=== PATIENT | female | born 1980 | race Two or more races ===

== ENCOUNTER 2016-11-21 12:44 | Inpatient (IN) | payer MEDICAID ==
[~2016-11-21] VITALS: Ht 177.8 cm; Wt 117.9 kg
[~2016-11-21 12:44] MED LIST: CLIN1CAP4 PO; DOXY-216 PO; HYDR-2457; LOPRESSOR PO; LORA-655 PO; NORVASC PO; POTA-167 PO; TRIA50TA2 PO
[2016-11-21] MEDS ORDERED: SODIUM CHLORIDE 0.9% 1,000 ML IV ONE ×2 (22:23)
[2016-11-21] MEDS ORDERED: KETOROLAC TROMETH 30 MG/ML 1ML VIAL IV ONE (22:30)
[2016-11-21 22:48] LABS: Basophils # (auto) 0.2 uL; Basophils % (auto) 1.6 % (0.0-2.0); CONDITION Y; Eosinophils # (auto) 0.1 uL; Eosinophils % (auto) 0.7 % (0.0-7.0); Hematocrit 41.6 % (36.0-46.0); Hemoglobin 14.1 g/dL (12.2-16.2); Lymphocytes # (auto) 2.8 uL; Lymphocytes % (auto) 20.6 % (10.0-50.0); Mean Corpuscular Hemoglobin 33.5 pg (28.0-32.0); Mean Corpuscular Volume 98.5 fL (80.0-100.0); Mean Platelet Volume 9.1 fL (7.4-10.4); Monocytes # (auto) 0.8 uL; Monocytes % (auto) 5.8 % (0.0-12.0); Neutrophils # (auto) 9.6 uL; Neutrophils % (auto) 71.3 % (37.0-80.0); Platelet Count (auto) 300 10^3/uL (140-450); White Blood Cell 13.5 10^3/uL (4.4-10.8)
[2016-11-21 23:11] LABS: Albumin 3.3 g/dL (3.4-5.0); BUN/Creatinine Ratio 9.6; Bilirubin, Total 0.6 mg/dL (0.2-1.0); Calcium 8.4 mg/dL (8.5-10.1); Total Protein 7.4 g/dL (6.4-8.2)
[2016-11-21 23:16] LABS: Potassium 1.8 mmol/L (3.5-5.1)
[2016-11-22] VITALS (7 sets, daily range): BP systolic 122–142; BP diastolic 65–80
[2016-11-22] MEDS ORDERED: POTASSIUM CHL 20 Meq TABLET PO ONE ×5 (00:15→17:30)
[2016-11-22] MEDS ORDERED: MORPHINE SULF INJ 2 MG/ML SYRINGE 1ML IV PRN (00:15)
[2016-11-22] MEDS ORDERED: SOD CHL 0.9%/ KCL 20MEQ 1,000 ML IV ONE (00:15)
[2016-11-22] MEDS ORDERED: NITROGLYCERIN 0.4 MG SL TAB SL PRN (00:15)
[2016-11-22 00:27] LABS: Urine RBC None Seen /hpf (0 - 4)
[2016-11-22] MEDS ORDERED: ACETAMINOPHEN 500 MG TAB PO PRN (00:30)
[2016-11-22] MEDS ORDERED: ONDANSETRON HCL 4 MG/2 ML VIAL IV PRN (00:30)
[2016-11-22] MEDS ORDERED: TEMAZEPAM 15 MG CAP PO PRN (00:30)
[2016-11-22 00:52] LABS: Urine Bilirubin Negative (Negative); Urine Blood Negative /uL (Negative); Urine Color Yellow (Yellow); Urine Glucose Normal (Normal); Urine Ketone Negative (Negative); Urine Squamous Epithelial Cell FEW /hpf (<5); Urine Urobilinogen Normal (Negative); Urine pH 7.5 (5.0-8.0)
[2016-11-22 00:53] LABS: Urine Nitrite POSITIVE (Negative)
[2016-11-22] MEDS ORDERED: NITROFURANTOIN (MONO) 100 mg CAP PO ONE (02:00)
[2016-11-22] MEDS ORDERED: SODIUM CHLORIDE 0.9% 1,000 ML IV SCH (02:00)
[2016-11-22 02:44] LABS: B-Type Natriuretic Peptide 20.18 pg/mL (0-100)
[2016-11-22] MEDS: POTASSIUM CHL 20MEQ/100ML 100 ML IV SCH ×3 (02:45→07:04)
[2016-11-22 02:57] LABS: Temperature: 22.3 C (20.0-25.0)
[2016-11-22] MEDS: HYDROcodone-ACET 5/325MG TAB PO PRN ×3 (05:18→20:24)
[2016-11-22] MEDS: MORPHINE SULF INJ 2 MG/ML SYRINGE 1ML IV PRN ×3 (07:04→16:50)
[2016-11-22 07:48] LABS: Basophils # (auto) 0.1 uL; Basophils % (auto) 0.5 % (0.0-2.0); CONDITION Y; Eosinophils # (auto) 0.1 uL; Eosinophils % (auto) 0.8 % (0.0-7.0); Hematocrit 41.9 % (36.0-46.0); Hemoglobin 14.6 g/dL (12.2-16.2); Lymphocytes # (auto) 2.3 uL; Lymphocytes % (auto) 19.2 % (10.0-50.0); Mean Corpuscular Hemoglobin 34.1 pg (28.0-32.0); Mean Corpuscular Hgb Conc. 34.8 g/dL (32.0-36.0); Mean Corpuscular Volume 97.9 fL (80.0-100.0); Mean Platelet Volume 9.5 fL (7.4-10.4); Monocytes # (auto) 0.7 uL; Neutrophils # (auto) 8.7 uL; Neutrophils % (auto) 73.5 % (37.0-80.0); Platelet Count (auto) 303 10^3/uL (140-450); Red Cell Distribution Width 14.2 % (11.6-16.0); White Blood Cell 11.8 10^3/uL (4.4-10.8)
[2016-11-22 08:18] LABS: BUN/Creatinine Ratio 8.3; Calcium 8.5 mg/dL (8.5-10.1)
[2016-11-22 08:35] LABS: Potassium 1.9 mmol/L (3.5-5.1)
[2016-11-22] MEDS ORDERED: NITROFURANTOIN (MONO) 100 mg CAP PO SCH (10:00)
[2016-11-22] MEDS: cefTRIAXone 1GM/50ML D5W 50 ML IV SCH (10:08)
[2016-11-22] MEDS: METOPROLOL TARTRATE 25 MG TAB PO SCH ×2 (10:09→22:09)
[2016-11-22] MEDS: amLODIPine BESYLATE 5 MG TAB PO SCH (10:09)
[2016-11-22] MEDS ORDERED: POTASSIUM CHLORIDE 40 MEQ, LIDOCAINE 1% (LOCAL ANESTH.) 4 ML in SODIUM CHL 0.9% 250 ML IV ONE ×2 (10:30→12:30)
[2016-11-22] MEDS: MAGNESIUM SULFATE 1GM/100ML 100 ML IV SCH ×3 (11:03→13:00)
[2016-11-22] MEDS: methylPREDNISolone SOD SUCC 40 MG/ML VL IV SCH ×2 (14:08→22:01)
[2016-11-22] MEDS ORDERED: FAM20T PO (14:16)
[2016-11-22] MEDS ORDERED: CEL100T PO (14:16)
[2016-11-22] MEDS ORDERED: IBUP800T24 PO (14:16)
[2016-11-22 17:10] LABS: Potassium 2.7 mmol/L (3.5-5.1)
[2016-11-22] MEDS: CELECOXIB 100 MG CAP PO SCH (22:01)
[2016-11-22] MEDS: LORazepam 0.5 MG TAB PO PRN (22:01)
[2016-11-22] MEDS: POTASSIUM CHL 20 Meq TABLET PO SCH (22:05)
[2016-11-23] MEDS: MORPHINE SULF INJ 2 MG/ML SYRINGE 1ML IV PRN ×2 (02:33→06:41)
[2016-11-23] MEDS: LORazepam 0.5 MG TAB PO PRN ×2 (04:31→11:17)
[2016-11-23 05:44] LABS: Basophils # (auto) 0 uL; CONDITION Y; Eosinophils # (auto) 0 uL; Hematocrit 41.6 % (36.0-46.0); Hemoglobin 14.4 g/dL (12.2-16.2); Lymphocytes # (auto) 1.3 uL; Lymphocytes % (auto) 8.2 % (10.0-50.0); Mean Corpuscular Hemoglobin 34.3 pg (28.0-32.0); Mean Corpuscular Hgb Conc. 34.6 g/dL (32.0-36.0); Mean Platelet Volume 9.4 fL (7.4-10.4); Monocytes # (auto) 0.3 uL; Monocytes % (auto) 1.8 % (0.0-12.0); Platelet Count (auto) 313 10^3/uL (140-450); Red Cell Distribution Width 14.8 % (11.6-16.0); White Blood Cell 15.5 10^3/uL (4.4-10.8)
[2016-11-23 05:57] LABS: Potassium 3.4 mmol/L (3.5-5.1)
[2016-11-23 06:03] VITALS: BP 146/87
[2016-11-23] MEDS: methylPREDNISolone SOD SUCC 40 MG/ML VL IV SCH (06:41)
[2016-11-23 09:13] VITALS: BP 118/75
[2016-11-23] MEDS: CELECOXIB 100 MG CAP PO SCH (09:46)
[2016-11-23] MEDS: cefTRIAXone 1GM/50ML D5W 50 ML IV SCH (09:46)
[2016-11-23] MEDS: POTASSIUM CHL 20 Meq TABLET PO SCH (09:47)
[2016-11-23] MEDS: METOPROLOL TARTRATE 25 MG TAB PO SCH (09:47)
[2016-11-23] MEDS: amLODIPine BESYLATE 5 MG TAB PO SCH (09:48)
[2016-11-23] MEDS ORDERED: LIDOCAINE 5% TOPICAL PATCH TOP SCH (10:00)
[2016-11-23] MEDS ORDERED: AMLO10TA2 PO (10:00)
[2016-11-23 10:40] VITALS: BP 118/75
[2016-11-23 10:53] VITALS: BP 118/75
[2016-11-23 11:03] VITALS: BP 118/75
[2016-11-23] MEDS: HYDROcodone-ACET 5/325MG TAB PO PRN (11:17)
== END 2016-11-23 11:50 | disposition home or self-care (01) | DRG 425 ==
LOC: EDBD 12:44 → ER 12:50 → TELE 12:51 → TELE-CENTR 11-22 02:16
PROVIDERS: ADMIT Nurse Practitioner Family; ATTEND Hospitalist
DX: E87.6 Hypokalemia (principal); E66.01 Morbid (severe) obesity due to excess calories; I11.9 Hypertensive heart disease without heart failure; K76.0 Fatty (change of) liver, not elsewhere classified; N39.0 Urinary tract infection, site not specified; G89.29 Other chronic pain; J98.11 Atelectasis; F41.9 Anxiety disorder, unspecified; M47.816 Spondylosis without myelopathy or radiculopathy, lumbar region; M48.06 Spinal stenosis, lumbar region; F17.210 Nicotine dependence, cigarettes, uncomplicated; T50.2X5A Adverse effect of carbonic-anhydrase inhibitors, benzothiadiazides and other diuretics, initial encounter; Z68.37 Body mass index [BMI] 37.0-37.9, adult; Z88.5 Allergy status to narcotic agent; Z88.0 Allergy status to penicillin; Z87.828 Personal history of other (healed) physical injury and trauma; Z82.3 Family history of stroke; Z82.49 Family history of ischemic heart disease and other diseases of the circulatory system
CPT/HCPCS: 36415; 71010; 72128; 72131; 80048; 80053; 81001; 83735; 83880; 84132; 84443; 84484; 84702; 85025; 87086; 87088; 87186; 93005; 96361; 96374; 97163; J0696; J1885; J2001; J3480

== ENCOUNTER 2017-12-23 21:44 | Emergency (ER) | payer MEDICAID ==
[~2017-12-23] VITALS: Ht 180.3 cm; Wt 117.9 kg
[~2017-12-23 21:44] MED LIST changes: +AMLO10TA12 PO; +CEL100T PO; -CLIN1CAP4 PO; -DOXY-216 PO; +FAM20T PO; +IBUP800T24 PO; -NORVASC PO; -POTA-167 PO; -TRIA50TA2 PO
[2017-12-23 22:55] LABS: Basophils # (auto) 0.1 uL; Eosinophils # (auto) 0.3 uL; Eosinophils % (auto) 2.7 % (0.0-7.0); Hematocrit 44.1 % (36.0-46.0); Hemoglobin 14.8 g/dL (12.2-16.2); Lymphocytes # (auto) 2.8 uL; Lymphocytes % (auto) 26.8 % (10.0-50.0); Mean Corpuscular Hemoglobin 33.6 pg (28.0-32.0); Mean Corpuscular Hgb Conc. 33.4 g/dL (32.0-36.0); Mean Corpuscular Volume 100.6 fL (80.0-100.0); Monocytes # (auto) 0.7 uL; Monocytes % (auto) 6.4 % (0.0-12.0); Neutrophils # (auto) 6.6 uL; Neutrophils % (auto) 63.1 % (37.0-80.0); Nucleated Red Blood Cells % 0.1 %; Platelet Count (auto) 302 10^3/uL (140-450); Red Blood Cells 4.39 10^6/uL (4.0-5.20); White Blood Cell 10.5 10^3/uL (4.4-10.8)
[2017-12-23 23:09] LABS: INR 0.91 (0.9-1.15); Partial Thromboplastin Time 27.4 sec (23.78-33.04); Prothrombin Time 9.8 sec (9.27-12.13)
[2017-12-23 23:12] LABS: Albumin 3.5 g/dL (3.4-5.0); Anion Gap 9 (5-15); Aspartate Aminotransferase 40 U/L (15-37); Blood Alcohol < 3.0 mg/dL (0-5); Blood Urea Nitrogen 6 mg/dL (7-18); Calcium 8.3 mg/dL (8.5-10.1); Carbon Dioxide 19 mmol/L (21-32); Chloride 108 mmol/L (98-107); GFR African American 95 mL/min; GFR Non-African American 79 mL/min; Glucose 180 mg/dL (74-106); Magnesium 2.1 mg/dL (1.6-2.6); Potassium 4.5 mmol/L (3.5-5.1); Salicylate 3.1 mg/dL (2.8-20.0); Sodium 136 mmol/L (136-145)
[2017-12-23 23:12] LABS: Urine Bacteria FEW /hpf (None Seen); Urine Blood Negative /uL (Negative); Urine Specific Gravity 1.009 (1.001-1.035); Urine WBC 8 /hpf (0 - 5)
[2017-12-23 23:14] LABS: Acetaminophen < 2.0 ug/mL (10-30)
[2017-12-23 23:14] LABS: Urine Pregnacy Test Negative (Negative)
[2017-12-23 23:18] LABS: Alanine Aminotransferase 33 U/L (13-56); Alkaline Phosphatase 101 U/L (45-117); Bilirubin, Total 0.3 mg/dL (0.2-1.0); Total Protein 8.6 g/dL (6.4-8.2)
[2017-12-23 23:29] LABS: Alcohol, Urine < 3.0 mg/dL (0-5); Amphetamine Screen, Urine NEGATIVE (NEGATIVE); Barbiturate Scree,Urine NEGATIVE (NEGATIVE); Benzodiazephine Screen, Urine POSITIVE (NEGATIVE); Cannabinoid Screen, Urine POSITIVE (NEGATIVE); Cocaine Screen, Urine NEGATIVE (NEGATIVE); Opiate Scree,Urine POSITIVE (NEGATIVE); Phencyclidine Screen, Urine NEGATIVE (NEGATIVE)
[2017-12-24] MEDS ORDERED: cefTRIAXone 1GM/10ml IVPUSH 10 ML IV ONE (03:30)
[2017-12-24] MEDS ORDERED: SODIUM CHLORIDE 0.9% 2,000 ML IV ONE (03:30)
[2017-12-24] MEDS ORDERED: KETOROLAC TROMETH 30 MG/ML 1ML VIAL IV ONE (04:15)
[2017-12-24 05:35] VITALS: BP 123/83
== END 2017-12-24 06:09 | disposition home or self-care (01) ==
LOC: ER 21:44
DX: G89.4 Chronic pain syndrome (principal); N39.0 Urinary tract infection, site not specified; F17.210 Nicotine dependence, cigarettes, uncomplicated
CPT/HCPCS: 36415; 70450; 71046; 80053; 80307; 80320; 80329; 81001; 81025; 82962; 83735; 84484; 85025; 85610; 85730; 93005; 96374; 96375; 99285; J0696; J1885; J7030; 96361

== ENCOUNTER 2018-10-03 23:06 | Emergency (ER) | payer MEDICAID ==
[~2018-10-03] VITALS: Ht 180.3 cm; Wt 117.9 kg
[2018-10-04 00:07] LABS: Basophils # (auto) 0.2 uL; Basophils % (auto) 1.4 % (0.0-2.0); Eosinophils # (auto) 0.3 uL; Eosinophils % (auto) 2.1 % (0.0-7.0); Hematocrit 41.9 % (36.0-46.0); Hemoglobin 14.3 g/dL (12.2-16.2); Lymphocytes # (auto) 4.3 uL; Lymphocytes % (auto) 28.1 % (10.0-50.0); Mean Corpuscular Hemoglobin 33.8 pg (28.0-32.0); Mean Corpuscular Hgb Conc. 34.2 g/dL (32.0-36.0); Mean Corpuscular Volume 98.7 fL (80.0-100.0); Monocytes # (auto) 0.9 uL; Monocytes % (auto) 5.9 % (0.0-12.0); Neutrophils # (auto) 9.5 uL; Neutrophils % (auto) 62.5 % (37.0-80.0); Platelet Count (auto) 312 10^3/uL (140-450); Red Blood Cells 4.24 10^6/uL (4.0-5.20); Red Cell Distribution Width 13.4 % (11.8-14.3); White Blood Cell 15.2 10^3/uL (4.4-10.8)
[2018-10-04 00:20] LABS: Albumin 3.6 g/dL (3.4-5.0); BUN/Creatinine Ratio 5.3; Calcium 8.5 mg/dL (8.5-10.1); Potassium 3.1 mmol/L (3.5-5.1)
[2018-10-04 00:23] LABS: Bilirubin, Total 0.2 mg/dL (0.2-1.0); Total Protein 8.5 g/dL (6.4-8.2)
[2018-10-04 01:27] LABS: Urine Bacteria NONE SEEN /hpf (None Seen); Urine Blood Negative /uL (Negative); Urine Specific Gravity 1.003 (1.001-1.035); Urine WBC 10 /hpf (0 - 5)
[2018-10-04] MEDS ORDERED: POTASSIUM CHL 20 Meq TABLET PO ONE (04:15)
[2018-10-04] MEDS ORDERED: IBUPROFEN 800 MG TAB PO ONE (04:15)
[2018-10-04] MEDS ORDERED: cefTRIAXone 1GM/50ML D5W 50 ML IV ONE (08:15)
[2018-10-04 10:30] VITALS: BP 133/77
== END 2018-10-04 11:06 | disposition home or self-care (01) ==
LOC: ER 23:10
DX: E11.622 Type 2 diabetes mellitus with other skin ulcer (principal); L97.919 Non-pressure chronic ulcer of unspecified part of right lower leg with unspecified severity; L03.115 Cellulitis of right lower limb; L02.415 Cutaneous abscess of right lower limb; E11.65 Type 2 diabetes mellitus with hyperglycemia; E87.6 Hypokalemia; N39.0 Urinary tract infection, site not specified; E03.9 Hypothyroidism, unspecified; G89.4 Chronic pain syndrome; I10 Essential (primary) hypertension; K21.9 Gastro-esophageal reflux disease without esophagitis; F17.210 Nicotine dependence, cigarettes, uncomplicated; Z88.5 Allergy status to narcotic agent; Z88.0 Allergy status to penicillin; Z79.899 Other long term (current) drug therapy
CPT/HCPCS: 36415; 73700; 80053; 81001; 81025; 83036; 84443; 85025; 87077; 87186; 87205; 93971; 96365; 99284; J0696

== ENCOUNTER → 2019-08-16 | Emergency (ER) | payer MEDICAID ==
[~2019-08-16] VITALS: Ht 170.2 cm; Wt 113.4 kg
[~2019-08-16] MED LIST changes: -AMLO10TA12 PO; +AMLO10TA13 PO; +CALCIUM CHLOR(10%) 100MG/ML 10ML SYRINGE IV ONE; +EPINEPHrine HCL 1 MG/10 ML SYRG IV ONE; +SODIUM BICARBONATE 8.4% INJ 50ML SYRINGE IV ONE
--- NOTE | 2019-08-16 11:22 | NUR ---
Nut Dehydrator Operator pick up man Body and copy of chart picked up by [facility] candelaria Louise[facility] The [facility] Patient Support Tech is Charlie Mera. Nut Dehydrator Operator .
== END | disposition expired ==
LOC: EDUNIT# 02:40 → EDBD 02:53 → ER 02:53
DX: I46.9 Cardiac arrest, cause unspecified (principal); E11.9 Type 2 diabetes mellitus without complications; I10 Essential (primary) hypertension; F17.210 Nicotine dependence, cigarettes, uncomplicated; Z88.0 Allergy status to penicillin; Z88.5 Allergy status to narcotic agent; Z79.899 Other long term (current) drug therapy
CPT/HCPCS: 92950; 99285; J0171